=== PATIENT | female | born 1945 | race Caucasian/White ===

== ENCOUNTER 2018-02-18 08:41 | Emergency (ER) | payer MEDICARE, BC ==
[~2018-02-18] VITALS: Ht 175.3 cm; Wt 71.0 kg
[~2018-02-18 08:41] MED LIST: CETI10 PO; CIPR500T4 PO; METR-1 PO; ZOCO40TA PO; ZOLP10TA3 PO; [UNRECOGNIZED DRUG - CODE] PO
[2018-02-18 08:43] VITALS: BP 134/77; PULSE 96; RESP 18; TEMP 97.7; O2SAT 98
[2018-02-18 09:05] LABS: BILIRUBIN, URINE NEG (NEG); BLOOD, URINE SMALL (NEG); GLUCOSE,URINE NEG (NEG); KETONE, URINE NEG (NEG); NITRITE,URINE NEG (NEG); PH, URINE 6.5 (5.0-8.5); URINE COLOR YELLOW (YELLW/STRAW); URINE LEUKOCYTE ESTERASE SMALL (NEG)
[2018-02-18 09:25] LABS: SQUAMOUS EPITHELIAL CELL URINE 0-5 /hpf (0-5)
[2018-02-18] MEDS ORDERED: BUPR150XL PO (09:27)
[2018-02-18] MEDS ORDERED: ZYRTEC (09:27)
[2018-02-18] MEDS ORDERED: CLON.5 PO (09:27)
[2018-02-18 09:42] LABS: AUTOMATED NEUTROPHIL # 7.1 TH/MM3 (1.8-7.7); BASOPHIL # 0.1 TH/MM3 (0-0.2); BASOPHIL % 0.7 % (0.0-2.0); EOSINOPHIL # 0.1 TH/MM3 (0-0.4); HEMATOCRIT 44.8 % (35.0-46.0); HEMOGLOBIN 14.7 GM/DL (11.6-15.3); LYMPH % 21.5 % (9.0-44.0); LYMPHOCYTE # 2.2 TH/MM3 (1.0-4.8); MEAN CELL VOLUME 88.3 FL (80.0-100.0); MEAN CORPUSCULAR HEMOGLOBIN 28.9 PG (27.0-34.0); MEAN CORPUSCULAR HGB CONC 32.7 % (32.0-36.0); MEAN PLATELET VOLUME 7.4 FL (7.0-11.0); MONO % 8.6 % (0.0-8.0); MONOCYTE # 0.9 TH/MM3 (0-0.9); NEUT % 68.2 % (16.0-70.0); PLATELET COUNT 321 TH/MM3 (150-450); RED BLOOD COUNT 5.08 MIL/MM3 (4.00-5.30); RED CELL DISTRIBUTION WIDTH 13.1 % (11.6-17.2); WHITE BLOOD COUNT 10.4 TH/MM3 (4.0-11.0)
[2018-02-18 10:04] LABS: CHLORIDE 106 MEQ/L (98-107); SODIUM (NA) 137 MEQ/L (136-145)
[2018-02-18 10:09] LABS: ALBUMIN 3.5 GM/DL (3.4-5.0); BICARBONATE 26.6 MEQ/L (21.0-32.0); BLOOD UREA NITROGEN 19 MG/DL (7-18); CALCIUM 9.1 MG/DL (8.5-10.1); GLUCOSE,RANDOM 97 MG/DL (74-106)
[2018-02-18 10:12] LABS: ALT (GPT) 23 U/L (10-53); AST (GOT) 20 U/L (15-37); CREATININE 0.77 MG/DL (0.50-1.00); GLOMERULAR FILTRATION RATE 74 ML/MIN (>89)
[2018-02-18 10:13] LABS: TOTAL BILIRUBIN ADULT 0.5 MG/DL (0.2-1.0)
--- NOTE | 2018-02-18 10:13 | PD ---
HPI Chief Complaint: Abdominal Pain Time Seen by Provider: 09:58 Travel History International Travel<30 days: No Contact w/Intl Traveler<30days: No Traveled to known affect area: No History of Present Illness HPI 72-year-old female is complaining of lower abdominal pain. He says it is a crampy pain which is somewhat intermittent. It has been moderate at times. There has not been any fever. It is greatest in the lower quadrants. She has had similar pain in the past associated with diverticulitis. She has been a little bit constipated she has not had a fever. She has had diverticulitis in 2013 and 2015. She did develop C. difficile as a consequence and had a lot of trouble clearing the C. difficile. She has had a colonoscopy with Dr. Fine about a year ago. She does not have a history of diabetes or hypertension. 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) Immunizations Current: Yes ?: Not Menopausal: Yes Past Surgical History Gynecologic Surgery: Yes (OOPHERECTOMY) Thoracic Surgery: Yes (ROBOTIC LT UPPER LOBECTOMY/CA) Social History Alcohol Use: Yes (rarely) Tobacco Use: No Substance Use: No Allergies-Medications (Allergen,Severity, Reaction): Coded Allergies: No Known Allergies (Verified Adverse Reaction, Unknown, 02/18/18) Reported Meds & Prescriptions Reported Meds & Active Scripts Active Reported Klonopin (Clonazepam) 0.5 Mg Tab 0.5 Mg PO BID Wellbutrin Xl 24 HR (Bupropion HCl) 150 Mg Tab 75 Mg PO DAILY [Zyrtec] DAILY Review of Systems General / Constitutional: No: Fever, Chills Eyes: No: Diploplia, Blurred Vision HENT: No: Headaches, Vertigo Cardiovascular: No: Chest Pain or Discomfort, Palpitations Respiratory: No: Cough, Shortness of Breath Gastrointestinal: Positive: Abdominal Pain, Constipation Genitourinary: No: Urgency, Frequency Musculoskeletal: No: Myalgias, Arthralgias Neurologic: No: Weakness Psychiatric: No: Anxiety Endocrine: No: Heat Intolerance, Cold Intolerance Hematologic/Lymphatic: No: Easy Bruising Physical Exam Narrative GENERAL: Well-developed female SKIN: Focused skin assessment warm/dry. HEAD: Atraumatic. Normocephalic. EYES: Pupils equal and round. No scleral icterus. No injection or drainage. ENT: No nasal bleeding or discharge. Mucous membranes pink and moist. NECK: Trachea midline. No JVD. CARDIOVASCULAR: Regular rate and rhythm. No murmur appreciated. RESPIRATORY: No accessory muscle use. Clear to auscultation. Breath sounds equal bilaterally. GASTROINTESTINAL: Abdomen soft, there is lower abdominal tenderness without guarding or rigidity nondistended. Hepatic and splenic margins not palpable. MUSCULOSKELETAL: No obvious deformities. No clubbing. No cyanosis. No edema. NEUROLOGICAL: Awake and alert. No obvious cranial nerve deficits. Motor grossly within normal limits. Normal speech. PSYCHIATRIC: Appropriate mood and affect; insight and judgment normal. Data Data Last Documented VS Vital Signs Date Time Temp Pulse Resp B/P (MAP) Pulse Ox O2 Delivery O2 Flow Rate FiO2 02/18/18 11:07 72 118/62 (80) 99 02/18/18 08:43 97.7 18 Orders Orders Urinalysis - C+S If Indicated (02/18/18 08:48) Complete Blood Count With Diff (02/18/18 09:35) Comprehensive Metabolic Panel (02/18/18 09:35) Lipase (02/18/18 09:35) Ct Abd/Pel W Iv Contrast(Rout) (02/18/18 10:08) Iohexol 350 Inj (Omnipaque 350 Inj) (02/18/18 11:32) Labs Laboratory Tests Test 02/18/18 08:49 02/18/18 09:30 Urine Collection Type CLEAN CATCH Urine Color YELLOW Urine Turbidity CLEAR Urine pH 6.5 Urine Specific [place] 1.015 Urine Protein NEG mg/dL Urine Glucose (UA) NEG mg/dL Urine Ketones NEG mg/dL Urine Occult Blood SMALL Urine Nitrite NEG Urine Bilirubin NEG Urine Urobilinogen 0.2 MG/DL Urine Leukocyte Esterase SMALL Urine RBC 4-9 /hpf Urine WBC 3-5 /hpf Urine Squamous Epithelial Cells 0-5 /hpf Microscopic Urinalysis Comment CULT NOT INDICATED Urine Collection Time 08:49 White Blood Count 10.4 TH/MM3 Red Blood Count 5.08 MIL/MM3 Hemoglobin 14.7 GM/DL Hematocrit 44.8 % Mean Corpuscular Volume 88.3 FL Mean Corpuscular Hemoglobin 28.9 PG Mean Corpuscular Hemoglobin Concent 32.7 % Red Cell Distribution Width 13.1 % Platelet Count 321 TH/MM3 Mean Platelet Volume 7.4 FL Neutrophils (%) (Auto) 68.2 % Lymphocytes (%) (Auto) 21.5 % Monocytes (%) (Auto) 8.6 % Eosinophils (%) (Auto) 1.0 % Basophils (%) (Auto) 0.7 % Neutrophils # (Auto) 7.1 TH/MM3 Lymphocytes # (Auto) 2.2 TH/MM3 Monocytes # (Auto) 0.9 TH/MM3 Eosinophils # (Auto) 0.1 TH/MM3 Basophils # (Auto) 0.1 TH/MM3 CBC Comment DIFF FINAL Differential Comment Blood Urea Nitrogen 19 MG/DL Creatinine 0.77 MG/DL Random Glucose 97 MG/DL Total Protein 7.1 GM/DL Albumin 3.5 GM/DL Calcium Level 9.1 MG/DL Alkaline Phosphatase 97 U/L Aspartate Amino Transf (AST/SGOT) 20 U/L Alanine Aminotransferase (ALT/SGPT) 23 U/L Total Bilirubin 0.5 MG/DL Sodium Level 137 MEQ/L Potassium Level 4.0 MEQ/L Chloride Level 106 MEQ/L Carbon Dioxide Level 26.6 MEQ/L Anion Gap 4 MEQ/L Estimat Glomerular Filtration Rate 74 ML/MIN Lipase 594 U/L MDM Medical Decision Making Medical Screen Exam Complete: Yes Emergency Medical Condition: Yes Medical Record Reviewed: Yes Differential Diagnosis Differential includes nonspecific abdominal pain, diverticulitis Narrative Course CT scan shows evidence of diverticulitis. He will be given prescription for Augmentin. She has had diverticulitis in the past and got C. difficile from Cipro and Flagyl and would like to try something different. I have cautioned her that Augmentin may also cause C. difficile Diagnosis Primary Impression: Acute diverticulitis Referrals: Olivier Fine MD Scripts Amoxicillin-Clavulanate (Augmentin) 875-125 Mg Tab 1 TAB PO TID for Infection for 10 Days, TAB 0 Refills Prov: Frederick Poole MD 02/18/18 Disposition: 01 DISCHARGE HOME Condition: Stable Frederick Poole MD Feb 18, 2018 10:13
[2018-02-18 10:14] LABS: TOTAL PROTEIN 7.1 GM/DL (6.4-8.2)
[2018-02-18 10:15] LABS: ALKALINE PHOSPHATASE 97 U/L (45-117)
[2018-02-18 11:07] VITALS: BP 118/62; PULSE 72; O2SAT 99
[2018-02-18] MEDS ORDERED: IOHEXOL 350 MG/ML 10 ML VIAL (for RAD DIAG) IVCONTRAST ONE (11:32)
--- NOTE | 2018-02-18 11:58 | RADRPT ---
EXAM DATE/TIME: 02/18/2018 11:25 [facility] COMPARISON: No previous studies available for comparison. INDICATIONS : Left lower quadrant pain. IV CONTRAST: 95 cc Omnipaque 350 (iohexol) IV ORAL CONTRAST: No oral contrast ingested. RADIATION DOSE: 9.53 CTDIvol (mGy) MEDICAL HISTORY : Carcinoma, lung. SURGICAL HISTORY : Left upper lobectomy. Oopherectomy. Left hip surgery. ENCOUNTER: Initial ACUITY: 1 day PAIN SCALE: 4/10 LOCATION: Left lower quadrant TECHNIQUE: Volumetric scanning of the abdomen and pelvis was performed. Using automated exposure control and ad justment of the mA and/or kV according to patient size, radiation dose was kept as low as reasonably achievable to obtain optimal diagnostic quality images. DICOM format image data is available electro nically for review and comparison. FINDINGS: LOWER LUNGS: The visualized lower lungs are clear. LIVER: Homogeneous density without lesion. There is no dilation of the biliary tree. No calcified gallston es. SPLEEN: Normal size without lesion. PANCREAS: Within normal limits. KIDNEYS: Normal in size and shape. There is no mass, stone or hydronephrosis. ADRENAL GLANDS: Within normal limits. VASCULAR: There is no aortic aneurysm. BOWEL/MESENTERY: Numerous sigmoid colon diverticula are identified. Hazy/stranding opacity in the fat adjacent to the mid sigmoid colon is identified indicating acute diverticulitis. No evidence of organized drainable f luid collection. No free air. No evidence of bowel dilatation. Trace free fluid in the dependent port ion of the pelvis. Appendix within normal limits. ABDOMINAL WALL: Within normal limits. RETROPERITONEUM: There is no lymphadenopathy. BLADDER: No wall thickening or mass. REPRODUCTIVE: Within normal limits. INGUINAL: There is no lymphadenopathy or hernia. MUSCULOSKELETAL: Moderate to severe facet arthrosis of the lower lumbar spine. Left-sided hip screw. Right hip osteoar thritic findings. CONCLUSION: 1. Acute diverticulitis of the mid sigmoid colon. No evidence of drainable abscess or free air. 2. Prominent degenerative findings of the lumbar spine, left-sided hip screw and right hip osteoarthr itis. Denis Jones MD on February 18, 2018 at 11:50 Board Certified Radiologist. This report was verified electronically.
[2018-02-18] MEDS ORDERED: AUGM875T3 PO (12:24)
[2018-02-21] MEDS ORDERED: CETI-1 PO (10:39)
== END 2018-02-18 12:42 | disposition home or self-care (01) ==
LOC: PHED 08:41
DX: K57.32 Diverticulitis of large intestine without perforation or abscess without bleeding (principal)
CPT/HCPCS: 74177; 80053; 81001; 83690; 85025; 99285; Q9967